=== PATIENT | female | born 1965 | race African-American/Black ===

== ENCOUNTER 2024-10-17 13:02 | Emergency (ER) | payer MEDICAID ==
[~2024-10-17] VITALS: Ht 165.1 cm; Wt 70.0 kg
[2024-10-17 13:04] VITALS: PULSE 85; O2SAT 98
[2024-10-17 13:10] VITALS: BP 138/78; RESP 16; TEMP 36.7; O2SAT 100
[2024-10-17 15:12] LABS: BASOPHILS % 0.3 % (0.0-2.0); DIFFERENTIAL COMMENT 0; EOSINOPHILS % 0.8 % (0.0-5.0); HEMATOCRIT. 41.7 % (36.0-48.0); LYMPHOCYTES % 29.8 % (20.0-50.0); MEAN CORPUSCULAR HEMOGLOBIN 26.8 pg (28.0-32.0); MEAN CORPUSCULAR HGB CONC 33.6 g/dL (31.0-37.0); MEAN CORPUSCULAR VOLUME 79.7 fL (81.0-99.0); MEAN PLATELET VOLUME 8.6 fl (7.4-10.4); NEUTROPHILS % 62.1 % (40.0-76.0); PLATELET 232 x1000/uL (130-400); RED BLOOD CELL COUNT 5.24 mill/uL (4.2-5.4); RED CELL DISTRIBUTION WIDTH 13.9 % (11.6-14.6); WHITE BLOOD COUNT 7.6 x1000/uL (4.5-11.0)
[2024-10-17 15:18] LABS: CHLORIDE 105 mEq/L (98-107); SODIUM 141 mEq/L (136-145)
[2024-10-17 15:19] LABS: CALCIUM 9.9 mg/dL (8.7-10.4); CARBON DIOXIDE 30 mEq/L (21-32)
[2024-10-17 15:24] LABS: CREATININE 0.9 mg/dL (0.6-1.0); GLUCOSE 89 mg/dL (70-105); UREA NITROGEN BLOOD 11 mg/dL (9-23)
[2024-10-17 15:26] LABS: ALANINE AMINOTRANSFERASE 14 IU/L (10-49); ALBUMIN 4.5 g/dL (3.2-4.8); ASPARTATE AMINOTRANSFERASE 18 IU/L (<34); BILIRUBIN DIRECT 0.3 mg/dL (<=3.0); PROTEIN TOTAL 7.7 g/dL (6.0-8.3)
[2024-10-17 15:32] LABS: TROPONIN I HIGH SENSITIVITY < 4 ng/L (3.0-34)
[2024-10-17] MEDS: MAGNESIUM/ALUMINUM HYDROXIDE/SIMETHICONE 30ML UDC PO ONE (17:57)
[2024-10-17] MEDS: FAMOTIDINE 20MG TABLET PO ONE (17:58)
[2024-10-17] MEDS: ONDANSETRON 4MG ODT PO ONE (18:02)
[2024-10-17] MEDS ORDERED: CYCL10TA21 MT (20:46)
== END 2024-10-17 20:51 | disposition home or self-care (01) ==
LOC: ER 13:02
DX: R07.89 Other chest pain (principal)
CPT/HCPCS: 99285; 71045; 80076; 80048; 85025; 85379; 84484; 36415; 93005; Q0162